=== PATIENT | female | born 1965 | race Caucasian/White ===

== ENCOUNTER → 2018-07-20 14:57 | Outpatient (CLI) | payer OTHER, SELFPAY | DX: Z23 Encounter for immunization (principal) | CPT/HCPCS: 90471; 90686 ==

== ENCOUNTER → 2018-09-02 09:06 | Outpatient (CLI) | payer OTHER, SELFPAY ==
[2018-09-02 11:37] LABS: Hematocrit 40.8 % (36-46); Hemoglobin 13.8 g/dL (12.0-16.0); Mean Corpuscular Hemoglobin 33.4 PG (26-34); Mean Corpuscular Volume 98.5 fL (80-100); Platelet Count 185 X10^3/uL (150-400); Red Blood Cell Count 4.14 X10^6/uL (4.0-5.2); Red Cell Distribution Width 13.1 % (11.6-14.8); White Blood Cell Count 5.3 X10^3/uL (4.5-11.0)
[2018-09-02 11:38] LABS: Add Manual Diff / Slide Review YES
[2018-09-02 12:16] LABS: Neutrophils Absolute Manual 2756 /uL (3000-5900); Total Cells Counted 100
[2018-09-02 12:17] LABS: RBC Morphology Normal Morphology
[2018-09-02 12:22] LABS: Alanine Aminotransferase 36 IU/L (9-52); Albumin 4.3 g/dL (3.5-5.0); Albumin Globulin Ratio 1.5 (1.0-2.8); Alkaline Phosphatase 83 U/L (38-126); Aspartate Aminotransferase 39 IU/L (14-36); Bilirubin Total 0.4 mg/dL (0.2-1.3); Blood Urea Nitrogen 21 mg/dL (7-17); Calcium 9.8 mg/dL (8.4-10.2); Carbon Dioxide 29 mmol/L (22-32); Chloride 103 mmol/L (98-107); Estimated Glomerular Filt Rate > 60.0 mL/min (>60); Globulin 2.9 g/dL (1.7-4.1); Glucose 88 mg/dL (70-100); HEMOLYSIS 17 (0-50); Potassium 3.9 mmol/L (3.4-5.1); Sodium 142 mmol/L (137-145); Total Protein 7.2 g/dL (6.3-8.2)
== END ==
PROVIDERS: Family Provider Physician Assistant; PCP Physician Assistant; Visit Provider Internal Medicine
DX: C50.412 Malignant neoplasm of upper-outer quadrant of left female breast (principal)
CPT/HCPCS: 36415; 80053; 85025

== ENCOUNTER → 2018-09-15 11:33 | Outpatient (CLI) | payer OTHER, SELFPAY ==
--- NOTE | 2018-09-15 | DI.NM.S_ITS ---
PROCEDURE: NM BONE SCAN WHOLE BODY RADIOPHARMACEUTICAL: 21.5 mCi Tc-99m MDP IV. INDICATIONS: MALIGNANT NEOPLASM OF UPPER-OUTER QUADRANT OF LEFT TECHNIQUE: Delayed whole-body scintigrams were obtained approximately 3-4 hours after intravenous injection of radiotracer. Anterior and posterior views were acquired from vertex to feet. Bilateral oblique views of the ribs. COMPARISON: None. FINDINGS: There is bilaterally symmetric shoulder girdle uptake, as well as bilateral asymmetric, right greater than left, sternoclavicular and sternomanubrial tracer activity which is probably degenerative/arthritic. Physiologic tracer activity seen within the kidneys and bladder. No suspicious scintigraphic tracer activity. Lateral curvature of the spine IMPRESSION: No suspicious scintigraphic tracer activity to suggest osseous metastases. Dictated by: Charles Smith M.D. on 09/15/2018 at 16:10 Approved by: Charles Smith M.D. on 09/15/2018 at 16:17
== END ==
PROVIDERS: PCP Physician Assistant; Visit Provider Internal Medicine
DX: C50.412 Malignant neoplasm of upper-outer quadrant of left female breast (principal); Z17.0 Estrogen receptor positive status [ER+]
CPT/HCPCS: 78306; A9503

== ENCOUNTER → 2019-08-16 14:38 | Outpatient (CLI) | payer OTHER, SELFPAY | PROVIDERS: PCP Physician Assistant | DX: Z23 Encounter for immunization (principal) | CPT/HCPCS: 90471; 90686 ==

== ENCOUNTER → 2021-11-01 11:37 | Outpatient (CLI) | payer OTHER, SELFPAY ==
[2021-11-01 13:17] LABS: Alanine Aminotransferase 26 IU/L (<35); Albumin 4.2 g/dL (3.5-5.0); Albumin Globulin Ratio 1.4 (1.0-2.8); Alkaline Phosphatase 72 U/L (38-126); Aspartate Aminotransferase 38 IU/L (14-36); BUN Creatinine Ratio 18.6 (6-22); Bilirubin Total 0.5 mg/dL (0.2-1.3); Blood Urea Nitrogen 13 mg/dL (7-17); Carbon Dioxide 28 mmol/L (22-32); Chloride 105 mmol/L (98-107); Estimated Glomerular Filt Rate > 60.0 mL/min (>60); Glucose 70 mg/dL (70-100); HEMOLYSIS < 15 (0-50); Sodium 141 mmol/L (137-145); Total Protein 7.2 g/dL (6.3-8.2)
== END ==
PROVIDERS: PCP Physician Assistant; Referring Provider Internal Medicine; Visit Provider Internal Medicine
DX: Z79.899 Other long term (current) drug therapy (principal); C50.412 Malignant neoplasm of upper-outer quadrant of left female breast; Z17.0 Estrogen receptor positive status [ER+]
CPT/HCPCS: 36415; 80053

== ENCOUNTER → 2022-11-24 13:47 | Outpatient (CLI) | payer OTHER, SELFPAY ==
[2022-11-24 14:51] LABS: BUN Creatinine Ratio 28.3 (6-22); Blood Urea Nitrogen 13 mg/dL (7-17); Calcium 9.7 mg/dL (8.4-10.2); Carbon Dioxide 24 mmol/L (22-32); Chloride 99 mmol/L (98-107); Estimated Glomerular Filt Rate > 60 mL/min (>60); Glucose 73 mg/dL (70-100); HEMOLYSIS 30 (0-50); Potassium 4.3 mmol/L (3.4-5.1); Sodium 136 mmol/L (137-145)
== END ==
PROVIDERS: PCP Physician Assistant; Referring Provider Internal Medicine; Visit Provider Internal Medicine
DX: C50.412 Malignant neoplasm of upper-outer quadrant of left female breast (principal); Z17.0 Estrogen receptor positive status [ER+]
CPT/HCPCS: 36415; 80048

== ENCOUNTER → 2023-05-30 12:43 | Outpatient (CLI) | payer OTHER, SELFPAY ==
[2023-05-30 13:44] LABS: Alanine Aminotransferase 20 IU/L (<35); Albumin Globulin Ratio 1.5 (1.0-2.8); Alkaline Phosphatase 61 U/L (38-126); Aspartate Aminotransferase 31 IU/L (14-36); BUN Creatinine Ratio 28.8 (6-22); Bilirubin Total 0.5 mg/dL (0.2-1.3); Blood Urea Nitrogen 17 mg/dL (7-17); Calcium 9.3 mg/dL (8.4-10.2); Carbon Dioxide 28 mmol/L (22-32); Chloride 105 mmol/L (98-107); Estimated Glomerular Filt Rate > 60 mL/min (>60); Globulin 2.7 g/dL (1.7-4.1); Glucose 102 mg/dL (70-100); HEMOLYSIS < 15 (0-50); Sodium 138 mmol/L (137-145); Total Protein 6.7 g/dL (6.3-8.2)
== END ==
PROVIDERS: PCP Physician Assistant; Referring Provider Internal Medicine; Visit Provider Internal Medicine
DX: C50.412 Malignant neoplasm of upper-outer quadrant of left female breast (principal); Z17.0 Estrogen receptor positive status [ER+]; Z79.899 Other long term (current) drug therapy
CPT/HCPCS: 36415; 80053

== ENCOUNTER → 2023-06-10 06:45 | Outpatient (CLI) | payer OTHER, SELFPAY ==
[2023-06-10 08:08] LABS: Hematocrit 43.4 % (36-46); Hemoglobin 14.8 g/dL (12.0-16.0); Mean Corpuscular HGB Conc 34.1 % (30-36); Mean Corpuscular Hemoglobin 33.3 PG (26-34); Mean Corpuscular Volume 97.5 fL (80-100); Platelet Count 176 X10^3/uL (150-400); Red Blood Cell Count 4.45 X10^6/uL (4.0-5.2); Red Cell Distribution Width 13.2 % (11.6-14.8); White Blood Cell Count 4.2 X10^3/uL (4.5-11.0)
[2023-06-10 08:10] LABS: Add Manual Diff / Slide Review YES
[2023-06-10 08:24] LABS: Cholesterol 265 mg/dL (140-199); HDL Cholesterol 107 mg/dL (40-60); LDL Cholesterol Calculated 141 mg/dL (<100); Triglycerides 84 mg/dL (35-150)
[2023-06-10 08:45] LABS: Neutrophils Absolute Manual 1932 /uL (3000-5900); Total Cells Counted 100
[2023-06-10 08:47] LABS: RBC Morphology Normal Morphology
[2023-06-10 08:48] LABS: UR Morphine/Opiate cutoff 300 Negative (Negative); Ur Creatinine Normal (Normal); Ur Specific Gravity Normal (Normal); Urine Amphetamines Negative (Negative); Urine Barbiturates Negative (Negative); Urine Benzodiazepines Positive (Negative); Urine Cocaine Negative (Negative); Urine MDMA Negative (Negative); Urine Methadone Negative (Negative); Urine Methamphetamines Negative (Negative); Urine Oxycodone Negative (Negative); Urine Phencyclidine Negative (Negative); Urine Tetrahydrocannabinol Negative (Negative); Urine Tricyclic Antidepressant Negative (Negative); Urine pH Normal (Normal)
[2023-06-10 09:23] LABS: Folate > 20.0 ng/mL (2.76-20.0); Vitamin B12 594 pg/mL (239-931)
== END ==
PROVIDERS: PCP Physician Assistant; Referring Provider Physician Assistant; Visit Provider Physician Assistant
DX: F41.9 Anxiety disorder, unspecified (principal); R71.8 Other abnormality of red blood cells; Z13.220 Encounter for screening for lipoid disorders
CPT/HCPCS: 36415; 80061; 80305; 82607; 82746; 85007; 85025

== ENCOUNTER → 2024-05-28 11:11 | Outpatient (CLI) | payer OTHER, SELFPAY ==
[2024-05-28 14:04] LABS: Alanine Aminotransferase 19 IU/L (<35); Albumin 4.1 g/dL (3.5-5.0); Albumin Globulin Ratio 1.6 (1.0-2.8); Alkaline Phosphatase 68 U/L (38-126); Aspartate Aminotransferase 31 IU/L (14-36); BUN Creatinine Ratio 23.8 (6-22); Bilirubin Total 0.6 mg/dL (0.2-1.3); Blood Urea Nitrogen 15 mg/dL (7-17); Calcium 9.5 mg/dL (8.4-10.2); Carbon Dioxide 26 mmol/L (22-32); Chloride 105 mmol/L (98-107); Estimated Glomerular Filt Rate > 60 mL/min (>60); Globulin 2.6 g/dL (1.7-4.1); Glucose 82 mg/dL (70-100); HEMOLYSIS < 15 (0-50); Potassium 4.4 mmol/L (3.4-5.1); Sodium 140 mmol/L (137-145); Total Protein 6.7 g/dL (6.3-8.2)
== END ==
PROVIDERS: PCP Physician Assistant; Referring Provider Internal Medicine; Visit Provider Internal Medicine
DX: C50.919 Malignant neoplasm of unspecified site of unspecified female breast (principal); Z17.0 Estrogen receptor positive status [ER+]
CPT/HCPCS: 36415; 80053

== ENCOUNTER → 2025-09-01 15:40 | Outpatient (CLI) | payer OTHER, SELFPAY ==
--- NOTE | 2025-09-01 15:50 | DI.RAD.S_ITS ---
PROCEDURE: XR CERVICAL SPINE 2V OR 3V
== END ==
PROVIDERS: PCP Physician Assistant; Visit Provider Registered Nurse
DX: M47.22 Other spondylosis with radiculopathy, cervical region (principal); Z98.1 Arthrodesis status
CPT/HCPCS: 72040